=== PATIENT | male | born 1950 | race Caucasian/White ===

== ENCOUNTER 2019-06-06 06:18 | Day surgery (SDC) | payer MEDICARE, BC ==
[2019-06-06] VITALS (8 sets, daily range): BP systolic 96–127; BP diastolic 67–88
[~2019-06-06] VITALS: Ht 162.6 cm; Wt 65.8 kg
[2019-06-06] MEDS ORDERED: LR 1000ml 1,000 ML IVLG SCH ×2 (06:39→07:00)
--- NOTE | 2019-06-06 06:42 | Anethesia Preoperative Eval ---
Anesthesia Pre-op PMH/ROS General Date of Evaluation: Jun 06, 2019 Time of Evaluation: 06:40 Anesthesiologist: farhan ASA Score: ASA 2 Mallampati Score Class I : Soft palate, uvula, fauces, pillars visible Class II: Soft palate, uvula, fauces visible Class III: Soft palate, base of uvula visible Class IV: Only hard plate visible Mallampati Classification: Class II Surgeon: paulette Diagnosis: gerd Surgical Procedure: egd Anesthesia History: none Social History: smoking - former smoker Family History: no anesthesia problems Allergies: Coded Allergies: No Known Allergies (Unverified , 06/05/19) Medications: see eMAR Patient NPO?: Yes Past Medical History Gastrointestinal/Genitourinary: Reports: other - irritable bowel syndrome Hematology/Immune: Reports: other - hx/o measles, chicken pox, mumps PSxH Narrative: appendectomy, tonsillectomy Anesthesia Pre-op Phys. Exam Physician Exam Last Vital Signs Date Time Temp Pulse Resp B/P (MAP) Pulse Ox O2 Delivery O2 Flow Rate FiO2 06/06/19 06:46 Room Air 06/06/19 06:40 97.9 72 20 127/68 96 Constitutional: NAD Neurologic: CN 2-12 intact Cardiovascular: RRR Respiratory: CTA Gastrointestinal: S/NT/ND Airway Exam Mallampati Score: Class II MO: limited Neck: flexible TMD: 2fb ROM: limited Anesthesia Pre-op A/P Risk Assessment & Plan Assessment: asa2 Plan: mac Status Change Before Surgery: No Pre-Antibiotics Drug: Apolonia Grossman MD Jun 06, 2019 06:42
[2019-06-06] MEDS ORDERED: fentaNYL 100 mcg/2 mL IV PRN (06:45)
[2019-06-06] MEDS ORDERED: Midazolam 2mg/2ml Inj IVP PRN (06:45)
[2019-06-06] MEDS ORDERED: DiphenhydrAMINE 50mg/ml Inj IVP PRN (06:45)
[2019-06-06] MEDS ORDERED: Atropine Inj 1mg/10ml Syr IV PRN (06:45)
--- NOTE | 2019-06-06 06:50 | NUR ---
IV LR WAS STARTED BY SOLE SIDDIQUIOPS RN. NO S/S OF INFILTRATION.
[2019-06-06] MEDS ORDERED: CREON DR 36,001 EACH PO (06:54)
[2019-06-06] MEDS ORDERED: FLORANEX TABLE1 EAC1 PO (06:54)
[2019-06-06] MEDS ORDERED: DICYCLOMINE HCL10 MG ORAL (06:54)
--- NOTE | 2019-06-06 07:05 | Short Stay Surgery H&P ---
History of Present Illness History of Present Illness Chief Complaint abdominal pains HPI Marshal Farfan is a 69 year old male who was admitted on for GERDS/ abdominal pains Patient History Allergies: Coded Allergies: No Known Allergies (Unverified , 06/05/19) PAST MEDICAL HISTORY: (1) Hx of appendectomy (2) Hx of inguinal hernia surgery (3) Asthma Medication History Scheduled Acidophilus/Bulgaricus (Floranex Tablet), 1 EACH PO DA, (Reported) Dicyclomine Hcl* (Dicyclomine Hcl*), 10 MG ORAL LENIN, (Reported) Lipase/Protease/Amylase (Creon Dr 36,000 Units Capsule), 1 EACH PO DA, (Reported ) Review of Systems Cardiovascular: Reports: no symptoms Respiratory: Reports: asthma Skeletal: Reports: no symptoms Gastrointestinal: Reports: gastro esophageal reflux disease Genitourinary: Reports: no symptoms Neurologic: Reports: no symptoms Endocrine: Reports: no symptoms Hematologic: Reports: no symptoms Physical Exam Vital Signs Last Vital Signs Date Time Temp Pulse Resp B/P (MAP) Pulse Ox O2 Delivery O2 Flow Rate FiO2 06/06/19 06:46 Room Air 06/06/19 06:40 97.9 72 20 127/68 96 Skin: normal HENT: normal Heart: normal Lungs: normal Abdomen: abnormal Extremities: normal Genitourinary: normal Plan Plan of Care Upper Gi endoscopy with biopsy Preop Interventions None. Summary of Findings See the reports Attestation Are the patient's medical conditions optimized for surgery? Attestation Response: yes Mariela De Souza MD Jun 06, 2019 07:05
--- NOTE | 2019-06-06 07:06 | Pre-Procedure Note/Attestation ---
Pre-Procedure Note/Attestation Complete Prior to Procedure Planned Procedure: left Procedure Narrative: Examination of the upper GI. tract via endoscopy Indications for Procedure Pre-Operative Diagnosis: R/O Gastritis/peptic ulcer/esophagitis Attestation I attest that I discussed the nature of the procedure; its benefits; risks and complications; and alternatives (and the risks and benefits of such alternatives ), prior to the procedure, with the patient (or the patient's legal franchise sales representative). I attest that, if there was a reasonable possibility of needing a blood transfusion, the patient (or the patient's legal franchise sales representative) was given the [facility] standardized written summary, pursuant to the Humberto Gene Blood Safety Act ([place] Health and Safety Code # 1645, as amended). I attest that I re-evaluated the patient just prior to the surgery and that there has been no change in the patient's H&P, except as documented below: Mariela De Souza MD Jun 06, 2019 07:06
[2019-06-06] MEDS ORDERED: Lidocaine 1% MPF 10mg/ml 5ml ONE (08:00)
[2019-06-06] MEDS ORDERED: LR 1000ml ONE (08:00)
[2019-06-06] MEDS ORDERED: Propofol 200mg/20ml IV ONE (08:00)
--- NOTE | 2019-06-06 08:09 | Endoscopy Procedure Note ---
Endoscopy Procedure Note General Indication for Procedure: Abdominal pains/GERDs Procedures Performed: EGD - Completely normal Upper GI. Endoscopy. Biopsy obtained per joe from gastric body. Specimen: yes Estimated Blood Loss: none Anesthesia Anesthesiologist: Dr. Landry Anesthesia: moderate sedation Medications Medication Given: see anesthesia record Inserted Devices Implant(s) used?: No Quality Quality of Bowel Preparation: Excellent GI Core Measures 50 yrs or older w/o bx or poly: Not Applicable 10yrs. F/U recommended: Not Applicable If not recommended, why?: Med reason:<3 yrs.: System Reason:<3 yrs.: Mariela De Souza MD Jun 06, 2019 08:09
--- NOTE | 2019-06-06 08:10 | Discharge Instructions ---
Discharge Instructions Discharge Instructions Follow up with: Make appointment to see the doctor after 2 weeks For Congestive Heart Failure Reminder Report to your physician any weight gain of 5 pounds or more in one week. Mariela De Souza MD Jun 06, 2019 08:10
--- NOTE | 2019-06-06 08:29 | Immediate Post-Op Evaluation ---
Immediate Post-Op Evalulation Immediate Post-Op Evalulation Procedure: egd w/bx Date of Evaluation: Jun 06, 2019 Time of Evaluation: 08:29 IV Fluids: 200ml lr Blood Products: none Estimated Blood Loss: negligible Blood Pressure Systolic: 96 Blood Pressure Diastolic: 67 Pulse Rate: 70 Respiratory Rate: 18 O2 Sat by Pulse Oximetry: 98 Temperature (Fahrenheit): 97.0 Pain Score (1-10): 0 Nausea: No Vomiting: No Complications none Patient Status: awake, reacts, patent Hydration Status: adequate Drug: Apolonia Grossman MD Jun 06, 2019 08:29
--- NOTE | 2019-06-06 08:31 | 48 Hour Post Anesthesia Eval ---
Post Anesthesia Evaluation Procedure: egd w/bx Date of Evaluation: Jun 06, 2019 Time of Evaluation: 08:31 Blood Pressure Systolic: 110 0: 78 Pulse Rate: 61 Respiratory Rate: 18 Temperature (Fahrenheit): 97.0 O2 Sat by Pulse Oximetry: 98 Airway: patent Nausea: No Vomiting: No Pain Intensity: 0 Hydration Status: adequate Cardiopulmonary Status: stable Mental Status/LOC: patient returned to baseline Post-Anesthesia Complications: none Follow-up care needed: N/A Apolonia Landry MD Jun 06, 2019 08:31
--- NOTE | 2019-06-06 10:00 | Operative Note - Dictated ---
DATE OF OPERATION: 06/06/2019 SURGEON: Mariela De Souza M.D. PROCEDURE: Esophagogastroduodenoscopy with biopsy. PREOPERATIVE DIAGNOSES: Abdominal pain, gastroesophageal reflux, and epigastric pain. POSTOPERATIVE DIAGNOSIS: Completely normal upper GI endoscopy and biopsy was taken per random from gastric body. MEDICATION USED: Per Dr. Bonner, anesthesiologist. INSTRUMENT: GIF Olympus upper GI video endoscope. DESCRIPTION OF PROCEDURE: The patient after arriving in the endoscopy unit, was told about risks and benefits of the procedure that he accepted and signed informed consent. At this time, he was put in the left lateral decubitus position. After adequate IV sedation, the scope was gently passed through the cricopharyngeal area, was lodged into the upper esophagus and was gradually advanced towards gastroesophageal junction. The entire length of the esophagus looked normal and there was no any evidence of pathology such as ulceration, exudation, stricture, polyps, or tumors, etc. GE junction also looked normal without evidence of Burgos's. At this time the scope was advanced into the stomach. Gastric cavity was distended with insufflation of air and gradually the areas of the fundus and the body and the antrum were examined. These revealed normal mucosal coverage without any ulcerations, polyps, tumors, bleeding sites, etc. A retroflexion maneuver was also applied to examine the gastroesophageal junction in a closer fashion, which also revealed normal findings. At this time, one random biopsy from gastric body obtained and subsequently scope was passed through the antrum and pylorus and subsequently first and second portion of duodenum were also examined, which were completely normal. Finally, scope was pulled out and the procedure was terminated. The patient tolerated the procedure well and left the endoscopy room in a good condition. Mariela De Souza M.D. DR: JAYMIE JOB#: [id number] CC:
== END 2019-06-06 09:20 | disposition home or self-care (01) ==
LOC: GAS 06:18
DX: R10.13 Epigastric pain (principal); K21.9 Gastro-esophageal reflux disease without esophagitis; Z90.89 Acquired absence of other organs; Z79.899 Other long term (current) drug therapy; K58.9 Irritable bowel syndrome, unspecified; Z87.891 Personal history of nicotine dependence; K29.70 Gastritis, unspecified, without bleeding; B96.81 Helicobacter pylori [H. pylori] as the cause of diseases classified elsewhere
CPT/HCPCS: 43239; J2704; 94003; 94150